=== PATIENT | female | born 1985 | race African-American/Black ===

== ENCOUNTER 2017-01-02 18:50 | Emergency (ER) | payer OTHER ==
[~2017-01-02] VITALS: Ht 177.8 cm; Wt 75.0 kg
[~2017-01-02 18:50] MED LIST: AMIT10TA6 PO; CA C1TAB73 PO; CALC1TAB15 PO; CARB200T6 PO; CLON0.5T PO; CYCL10B PO; FURO-152 PO; GABA250S5 PO; INSU100C4 SQ; INSU100V31 SQ; IPRA3AMP4 NEB; LANS30CA PO; LISI10TA7 PO; LORA10TA60 PO; METO5TAB87 PO; MORP15TA9 PO; MULT-1203 PO; RISP2TAB76 PO; SUMA6PEN SQ; TOPI25 PO; TRAM50TA50 PO; VENL-53 PO
[2017-01-02] MEDS ORDERED: OMEP10 PO (19:04)
[2017-01-02] MEDS ORDERED: DULO60CA44 PO (19:04)
[2017-01-02] MEDS ORDERED: PREG50 PO (19:04)
[2017-01-02 19:12] LABS: GLUCOSE,POINT OF CARE 140 MG/DL (70-110)
[2017-01-02 22:25] LABS: BASOPHILS % (AUTO) 1.2 % (0.0-2.0); EOSINOPHILS # (AUTO) 0.13 K/uL (0.00-0.70); EOSINOPHILS % (AUTO) 1.52 % (1.0-6.0); HEMATOCRIT 33.1 % (36-46); LYMPHOCYTES # (AUTO) 2.3 K/uL (1.0-4.8); LYMPHOCYTES % (AUTO) 26.3 % (22.0-44.0); MEAN CORPUSCULAR HEMOGLOBIN 28.7 pg (26.0-34.0); MEAN CORPUSCULAR HGB CONC 33.2 G/dL (31.0-37.0); MEAN CORPUSCULAR VOLUME 86 fL (80-100); MONOCYTES # (AUTO) 0.5 K/uL (0.1-1.0); NEUTROPHILS # (AUTO) 5.6 K/uL (1.8-7.7); NEUTROPHILS % (AUTO) 65.1 % (40.0-70.0); PLATELET COUNT (AUTO) 229 K/uL (150-450); RED BLOOD CELL COUNT(AUTO) 3.83 MIL/uL (4.00-5.20); RED CELL DISTRIBUTION WIDTH 17.2 % (11.5-14.5); WHITE BLOOD COUNT (AUTO) 8.6 K/uL (4.5-11.0)
[2017-01-02 22:36] LABS: RBC MORPHOLOGY COMMENT ABNORMAL RBC MORPH
[2017-01-02 22:37] LABS: ANION GAP 13 mmol/L (8-16); CALCIUM, TOTAL 9.1 mg/dL (8.8-10.5); CARBON DIOXIDE 23 mmol/L (22-29); CHLORIDE 103 mmol/L (98-107); CREATININE 0.72 mg/dL (0.60-1.30); GLOMERULAR FILTR. RATE CALC > 60 mL/min (>60); POTASSIUM 3.7 mmol/L (3.5-5.1); SODIUM SERUM 139 mmol/L (136-145); UREA NITROGEN, BLOOD 8 mg/dL (7-18)
[2017-01-02 22:42] LABS: ALANINE AMINOTRANSFERASE 16 U/L (12-78); ASPARTATE AMINOTRANSFERASE 16 U/L (15-37); BILIRUBIN,TOTAL 0.4 mg/dL (0.1-1.0); TOTAL PROTEIN, SERUM 8.6 g/dL (6.4-8.2)
[2017-01-03] MEDS ORDERED: HYDROCODONE/ACETAMINOPHEN 5-325 MG TABLET PO ONE (01:00)
[2017-01-03] MEDS ORDERED: CEPHALEXIN MONOHYDRATE 500 MG CAPSULE PO ONE (01:00)
[2017-01-03 01:24] VITALS: BP 156/98
== END 2017-01-03 01:25 | disposition home or self-care (01) ==
LOC: EMS 18:52
DX: R07.89 Other chest pain (principal); J06.9 Acute upper respiratory infection, unspecified; J40 Bronchitis, not specified as acute or chronic; I10 Essential (primary) hypertension; E11.43 Type 2 diabetes mellitus with diabetic autonomic (poly)neuropathy; K31.84 Gastroparesis; F17.210 Nicotine dependence, cigarettes, uncomplicated; Z79.4 Long term (current) use of insulin; Z88.0 Allergy status to penicillin
CPT/HCPCS: 82962; 93005; 99285; 99406

== ENCOUNTER 2018-08-28 18:47 | Emergency (ER) | payer OTHER ==
[~2018-08-28] VITALS: Ht 177.8 cm; Wt 72.7 kg
[~2018-08-28 18:47] MED LIST changes: -AMIT10TA6 PO; -CYCL10B PO; +DULO60CA44 PO; -GABA250S5 PO; -INSU100V31 SQ; +IPRA3AMP24 NEB; -IPRA3AMP4 NEB; -LANS30CA PO; -METO5TAB87 PO; -MORP15TA9 PO; +OMEP10 PO; +PREG50 PO; -RISP2TAB76 PO; -SUMA6PEN SQ; -TRAM50TA50 PO; -VENL-53 PO
[2018-08-28] MEDS ORDERED: INSU100V SQ (19:08)
[2018-08-28 19:13] LABS: GLUCOSE,POINT OF CARE 296 MG/DL (70-110)
[2018-08-28] MEDS ORDERED: SODIUM CHLORIDE 0.9% 1,000 ML IV ONE (19:30)
[2018-08-28 19:44] LABS: BASOPHILS % (AUTO) 1.4 % (0.0-2.0); EOSINOPHILS % (AUTO) 0.7 % (1.0-6.0); HEMATOCRIT 33.1 % (36-46); HEMOGLOBIN 10.6 g/dL (12.0-16.0); LYMPHOCYTES % (AUTO) 28.4 % (22.0-44.0); MEAN CORPUSCULAR HEMOGLOBIN 24.1 pg (26.0-34.0); MEAN CORPUSCULAR HGB CONC 31.9 G/dL (31.0-37.0); MEAN CORPUSCULAR VOLUME 76 fL (80-100); MONOCYTES # (AUTO) 0.5 K/uL (0.1-1.0); MONOCYTES % (AUTO) 7.4 % (2.0-9.0); NEUTROPHILS # (AUTO) 4.3 K/uL (1.8-7.7); NEUTROPHILS % (AUTO) 62.1 % (40.0-70.0); PLATELET COUNT (AUTO) 201 K/uL (150-450); RED BLOOD CELL COUNT(AUTO) 4.39 MIL/uL (4.00-5.20); RED CELL DISTRIBUTION WIDTH 21.4 % (11.5-14.5)
[2018-08-28 19:55] LABS: ANION GAP 9 mmol/L (8-16); CALCIUM, TOTAL 8.9 mg/dL (8.8-10.5); CARBON DIOXIDE 23 mmol/L (22-29); CHLORIDE 96 mmol/L (98-107); CREATININE 0.97 mg/dL (0.60-1.30); GLOMERULAR FILTR. RATE CALC > 60 mL/min (>60); GLUCOSE,RANDOM 277 mg/dL (70-110); POTASSIUM 3.5 mmol/L (3.5-5.1); SODIUM SERUM 128 mmol/L (136-145); UREA NITROGEN, BLOOD 11 mg/dL (7-18)
[2018-08-28] MEDS ORDERED: METOCLOPRAMIDE HCL 5 MG/ML 2 ML VIAL IVP ONE (20:00)
[2018-08-28 20:02] LABS: ALANINE AMINOTRANSFERASE 15 U/L (12-78); ALKALINE PHOSPHATASE 68 U/L (46-116); AMYLASE 33 U/L (25-115); ASPARTATE AMINOTRANSFERASE 13 U/L (15-37); BILIRUBIN,TOTAL 0.8 mg/dL (0.1-1.0); LIPASE 48 U/L (73-393); TOTAL PROTEIN, SERUM 8.5 g/dL (6.4-8.2)
[2018-08-28 20:09] LABS: APPEARANCE,URINE CLOUDY (CLEAR); BILIRUBIN,URINE NEGATIVE (NEGATIVE); GLUCOSE, URINE (UA) >=1000 mg/dL (NEGATIVE); KETONES,URINE >=80 mg/dL (NEGATIVE); LEUKOCYTE ESTERASE ,URINE NEGATIVE (NEGATIVE); OCCULT BLOOD,URINE SMALL (NEGATIVE); PH,URINE 5.5 (5.0-8.0); PROTEIN,URINE TRACE (NEGATIVE); UROBILINOGEN,URINE 0.2 mg/dL (<=1.0)
[2018-08-28 20:15] LABS: BACTERIA,URINE Many /HPF (None Seen)
[2018-08-28 20:16] LABS: NITRATE,URINE POSITIVE (NEGATIVE); SQUAMOUS EPITHELIAL CELL,UR Many /LPF (None Seen)
[2018-08-28] MEDS ORDERED: CIPROFLOXACIN HCL 250 MG TABLET PO ONE (21:00)
[2018-08-28 21:21] VITALS: BP 151/87
[2018-08-28 21:22] LABS: GLUCOSE,POINT OF CARE 155 MG/DL (70-110)
== END 2018-08-28 21:20 | disposition home or self-care (01) ==
LOC: EMS 18:48
DX: E11.65 Type 2 diabetes mellitus with hyperglycemia (principal); N39.0 Urinary tract infection, site not specified; J02.9 Acute pharyngitis, unspecified; J45.909 Unspecified asthma, uncomplicated; I10 Essential (primary) hypertension; E11.43 Type 2 diabetes mellitus with diabetic autonomic (poly)neuropathy; K31.84 Gastroparesis; F17.210 Nicotine dependence, cigarettes, uncomplicated; Z79.4 Long term (current) use of insulin; Z88.0 Allergy status to penicillin; Z88.8 Allergy status to other drugs, medicaments and biological substances; Z79.899 Other long term (current) drug therapy
CPT/HCPCS: 36415; 80053; 81001; 82150; 82962; 83690; 84703; 85025; 87077; 87086; 87186; 96361; 96374; 99284; J2765; J7030